=== PATIENT | female | born 1970 | race African-American/Black ===

== ENCOUNTER 2017-02-18 17:56 | Inpatient (IN) | payer OTHER ==
--- NOTE | ~2017-02-18 | EKG ---
PATIENT: DIANA HUANG UNIT #: [id number] Ventricular Rate: 110 BPM Atrial Rate: 110 BPM P-R Interval: 160 ms QRS Duration: 88 ms Q-T Interval: 370 ms QTC Calculation(Bezet): 500 ms P [place]: 79 degrees Calculated R [place]: 54 degrees Calculated T [place]: 91 degrees Diagnosis Line: Sinus tachycardia Diagnosis Line: Possible Left atrial enlargement Diagnosis Line: Left ventricular hypertrophy Diagnosis Line: Nonspecific ST and T wave abnormality Diagnosis Line: Abnormal ECG Diagnosis Line: When compared with ECG of 21-DEC-2014 00:37, Diagnosis Line: No significant change was found Diagnosis Line: Confirmed by ANGEL SINGER MD ([id number]) on Diagnosis Line: 02/21/2017 8:33:45 AM INTERPRETING MD: ENMANUEL WATKINS
--- NOTE | ~2017-02-18 | US5 ---
[facility] A Service of [facility] & [facility] RADIOLOGY TEXT RESULTS PATIENT: DIANA HUANG LOCATION: [facility] [id number] : [birth year] UNIT #: [id number] AGE: [address]: Ton Lambert MD SEX: F ORDER DR: [id number] [facility] [address] [place], [place] [address] [id number] I MR#: [id number] Acc #: [id number] NAME: DIANA HUANG : 1970 SEX: F STUDY DATE/TIME: 02/19/2017 14:49 UNIT: [facility] ROOM: [facility] STUDY DESCRIPTION: US Abdominal Complete Attending Physician: Ton Lambert M.D. Ordering Physician: David Patricia M.D. Primary Care Physician: [facility] MEDICAL IMAGING REPORT This report is preliminary unless electronic signature is present EXAM Abdominal ultrasound HISTORY Abdomen pain and swelling for 4 months. Nausea. FINDINGS Ultrasound examination of the abdomen demonstrates no hepatic mass or biliary ductal dilatation. Splenomegaly measuring 18 cm in length. No renal mass or hydronephrosis. Normal caliber abdominal aorta. Cholecystectomy. The mid pancreas is only partly visualized and unremarkable but the remainder of the pancreas was not visualized due to overlying bowel gas artifact. The upper abdominal IVC is partly visualized and is unremarkable. No ascites. IMPRESSION 1. Splenomegaly measuring 18 cm in length. 2. Cholecystectomy. No biliary dilatation. 3. The remainder of the abdominal ultrasound is unremarkable. Dictated by... Da Doss M.D. THIS IS AN ELECTRONICALLY VERIFIED REPORT Da Doss M.D. at 02/20/2017 2:35 PM DFL/michele TD: 02/20/2017 05:03 JOB #: [id number] MEDICAL IMAGING REPORT Page 1 of 1 COPY
--- NOTE | ~2017-02-18 | CO ---
Unit #: [id number] #: [id number] Patient: DIANA HUANG [id number] [address] [id number] I MR#: [id number] NAME: DIANA HUANG ROOM: 57366 Age: 46 Sex: F Admission Date: 02/18/2017 : 1970 Attending Physician: Ton Lambert M.D. Primary Care Physician: [facility] CONSULTATION REPORT REASON FOR CONSULTATION Critical care management. CHIEF COMPLAINT Swelling of the legs and abdominal pain. HISTORY OF PRESENT ILLNESS This patient basically is a 46-year-old female with a past medical history of hypertension, lower extremity edema, presented with a complaint of abdominal pain and lower extremity swelling and was found to have a blood pressure of 220/124 with shortness of breath. I am seeing her at the bedside, currently on Cardene drip. Blood pressure is controlled. Denies any headache, blurry vision. No chest pain, mild shortness of breath. PAST MEDICAL HISTORY 1. Hypertension. 2. Lower extremity edema. 3. Obesity. 4. Likely obstructive sleep apnea. SURGICAL HISTORY Cholecystectomy. SOCIAL HISTORY Denies smoking. No alcohol, no drug abuse. FAMILY HISTORY Hypertension. MEDICATION Does not take any medication. ALLERGIES No known drug allergies. PHYSICAL EXAMINATION VITAL SIGNS: Temperature 98, pulse 87, respirations 12, blood pressure 130/70. NEUROLOGICAL: She is awake, alert, oriented. No neuro deficit. HEENT: PERRLA. NECK: Supple. No JVD. CHEST: Bilateral air entry, bilateral mild rhonchi. Unit #: [id number] #: [id number] Patient: DIANA HUANG GI: Nontender, soft. Bowel sounds positive. EXTREMITIES: Positive edema. SKIN: No rashes, no ulcers. LYMPHATIC: No lymphadenopathy. DIAGNOSTIC STUDIES LABORATORY: Potassium is 3.2. Her BNP is 554, white count 5, hemoglobin 8, hematocrit 31, platelet count is 92. ASSESSMENT AND PLAN 1. Hypertensive urgency. 2. Pulmonary edema, likely hypertensive heart disease. 3. Obstructive sleep apnea. 4. Thrombocytopenia. 5. Noncompliance. 6. Questionable urinary tract infection. Plan is to admit the patient, diuretics, IV Cardene drip. Cardiology consult, 2D echo. GI and DVT prophylaxis. The patient will be closely monitored. Please see orders for detailed plan. Total critical care time - 65 minutes in direct critical care of this patient. Thank you very much for this consultation. Dictated by... Lien Rock/jesus alberto TD: 02/19/2017 10:07 JOB #: [id number] CONSULTATION REPORT Page 1 of 1 X Deb Otero MD X CONSULTATION REPORT
--- NOTE | ~2017-02-18 | EKG ---
PATIENT: DIANA HUANG UNIT #: [id number] Ventricular Rate: 75 BPM Atrial Rate: 75 BPM P-R Interval: 184 ms QRS Duration: 96 ms Q-T Interval: 472 ms QTC Calculation(Bezet): 527 ms P [place]: 61 degrees Calculated R [place]: -4 degrees Calculated T [place]: 97 degrees Diagnosis Line: Normal sinus rhythm Diagnosis Line: Possible Left atrial enlargement Diagnosis Line: Left ventricular hypertrophy Diagnosis Line: Nonspecific T wave abnormality Diagnosis Line: Prolonged QT Diagnosis Line: Abnormal ECG Diagnosis Line: When compared with ECG of 18-FEB-2017 20:07, Diagnosis Line: (unconfirmed) Diagnosis Line: Questionable change in QRS axis Diagnosis Line: ST no longer depressed in Lateral leads Diagnosis Line: Confirmed by CELESTINE KEYES MD ([id number]) on Diagnosis Line: 02/21/2017 11:00:54 PM INTERPRETING MD: BURKE
--- NOTE | ~2017-02-18 | CR72 ---
[facility] A Service of [facility] & [facility] RADIOLOGY TEXT RESULTS PATIENT: DIANA HUANG LOCATION: [facility] [id number] : [birth year] UNIT #: [id number] AGE: [address]: Ton Lambert MD SEX: F ORDER DR: [id number] [facility] [address] [place], [place] [address] [id number] I MR#: [id number] Acc #: [id number] NAME: DIANA HUANG : 1970 SEX: F STUDY DATE/TIME: 02/18/2017 20:18 UNIT: [facility] ROOM: 81295 STUDY DESCRIPTION: CR Chest Single View Portable Attending Physician: Julian Moreno M.D. Ordering Physician: David Patricia M.D. Primary Care Physician: [facility] MEDICAL IMAGING REPORT This report is preliminary unless electronic signature is present EXAM Portable chest HISTORY Chronic shortness of air for 2 months. Cough. FINDINGS Cardiomegaly has increased since 12/21/2014 and could be due to multichamber cardiac enlargement or pericardial effusion. Moderate vascular congestion has also developed or increased since the prior study. Limited evaluation of the lung bases due to underpenetration. IMPRESSION Cardiomegaly and vascular congestion. No definite focal infiltrates. Dictated by... Da Doss M.D. THIS IS AN ELECTRONICALLY VERIFIED REPORT Da Doss M.D. at 02/19/2017 2:59 PM DFL/rnr TD: 02/19/2017 01:42 JOB #: [id number] MEDICAL IMAGING REPORT Page 1 of 1 COPY
--- NOTE | ~2017-02-18 | DS ---
Unit #: [id number] #: [id number] Patient: DIANA HUANG [id number] [place], [place] [address] [id number] I MR#: [id number] NAME: DIANA HUANG ROOM: 332 Age: 46 Sex: F Admission Date: 02/18/2017 : 1970 Discharge Date: 02/21/2017 Attending Physician: Ton Lambert M.D. Primary Care Physician: [facility] DISCHARGE SUMMARY DISCHARGE DIAGNOSES 1. Acute diastolic heart failure, newly diagnosed. 2. Severe mitral regurg which was present on echo. 3. Acute hypoxic respiratory failure, resolved. The patient is oxygenating well on room air at this time. 4. Hypertensive urgency. 5. Noncompliance. 6. Severe iron deficiency anemia. 7. Splenomegaly. 8. Morbidly obese. PROCEDURES None. CONSULTANTS 1. Cardiology with [facility]. 2. Pulmonary with Dr. Otero. DIAGNOSTIC STUDIES LABORATORY: Last labs done 02/20/17. BMP: Glucose 78, BUN 11, creatinine 0.9, sodium 141, potassium 4.8, chloride 103, CO2 27, magnesium 1.8, AST 17, ALT 12, alkaline phosphatase 94. Amylase 14, lipase 18. CBC with WBC of 5.7, RBC 5.17, hemoglobin 8.4, hematocrit 31.0, MCV 60.9, MCH 16.2, MCHC 27.0, RDW 21.8, platelets 92, MPV 8.7. Urine culture had no growth. Please note that the patient's B12 was 571. Iron 121, total iron binding capacity 499, transferrin 357, saturation 24. Acute hepatis panel is still pending. IMAGIN. Chest x-ray on 02/18/17. Impression: Cardiomegaly and vascular congestion. No definite focal infiltrates. 2. Abdominal ultrasound on 02/19/17. Impression: Splenomegaly measuring 18 cm in length. Cholecystectomy. No biliary dilation. The remainder of the abdominal ultrasound is unremarkable. CARDIOVASCULAR: The patient had a 2D echo done on 02/19/17. Summary: Moderate concentric left ventricular hypertrophy. Ejection fraction is visually estimated at 60%. Mild asymmetrical septal hypertrophy. Mildly dilated right ventricle. Right ventricular systolic pressure of 41 mmHg consistent with mild pulmonary structurally normal mitral valve. There is severe mitral regurgitation present, mild to moderate tricuspid regurg. There is mild pulmonic regurg. HOSPITAL COURSE Unit #: [id number] #: [id number] Patient: DIANA HUANG The patient is a 46-year-old female with past medical history of essential hypertension, lower extremity edema and obesity who she herself states she does not take anything medically chronically. The patient presented to the emergency department due to symptoms of shortness of breath, swelling in the abdomen and lower extremity. Symptoms have been ongoing for two months and have progressively gotten worse. She was unable to ambulate due to her abdominal swelling and lower extremity swelling. In the emergency department, she had a workup which includes a BNP of 941, a chest x-ray that showed congestion and blood pressure of 220/124. She was started on nitro drip and admitted for new onset CHF. She was seen in consultation with Dr. Otero of Pulmonary for critical care. She was also seen in consultation with [facility] Cardiology for newly diagnosed heart failure. She was treated with IV Lasix as diuretic and her blood pressure had been adjusted by Cardiology. At this time, she has diuresed well. Blood pressure is controlled with the adjustment of blood pressure medicine per Cardiology. It is felt by Cardiology that patient is stable and may be discharged home. The patient will follow up with Dr. Osorio on April 22, 2017 at 2:30 p.m. She will have further planning for ischemic assessment with Dr. Osorio at that time. DISCHARGE CONDITION Stable to home. DISCHARGE FOLLOWUP To follow up with Dr. Osorio April 22. Follow up with primary care physician within one to two weeks. DISCHARGE ACTIVITY Not restricted. DISCHARGE DIET This patient is to resume a Heart Healthy diet with 1800 mL fluid restriction, 2 g sodium diet. (1) . No sodas. DISCHARGE MEDICATIONS 1. Lopressor 50 mg orally every 12 hours. 2. Lasix 40 mg orally twice daily. 3. Lisinopril 20 mg orally twice daily. 4. Spironolactone 25 mg orally daily. 5. Potassium chloride 20 mEq orally daily. 6. Ferrous gluconate 324 mg orally twice daily. 7. Stool softener one orally daily. Dictated by... Jaky Garcia PA-C for Lien Bustamante TD: 02/22/2017 08:46 JOB #: [id number] Unit #: [id number] #: [id number] Patient: DIANA HUANG DISCHARGE SUMMARY Page 1 of 1 X X DISCHARGE SUMMARY
--- NOTE | ~2017-02-18 | CO ---
Unit #: [id number] #: [id number] Patient: DIANA SANDRA [id number] [address] [place], [place] [address] [id number] I MR#: [id number] NAME: DIANA SANDRA ROOM: 332 Age: 46 Sex: F Admission Date: 02/18/2017 : 1970 Attending Physician: Ton Lambert M.D. Primary Care Physician: [facility] Consultation Date: 02/19/2017 CONSULTATION REPORT REASON FOR CONSULTATION Acute congestive heart failure and hypertensive urgency. HISTORY OF PRESENT ILLNESS This is a 46-year-old female, who has had known hypertension in the past, been noncompliant for several years with her blood pressure medication and back in 2007, had some pulmonary edema, most likely from hypertension. She had an echo at that time that her EF is greater than 55%. She has a history of chronic anemia, probable obstructive sleep apnea. She is obese with a weight of 254, BMI of 53. The patient presented to the emergency room with worsening shortness of breath, increased abdominal swelling, and increased lower extremity edema and swelling. She denies any chest pain; pain in her neck, bilateral jaws, shoulders, arms, or elbow. She denies any palpitations. No dizziness, presyncope, or syncope. The patient's initial blood pressure was found to be 220/124, heart rate was 107, respirations 18, she is afebrile, O2 saturation was 99% on room air. Her chest x-ray showed vascular congestion. Her BNP was 941 and later 554. The patient initially was given some IV Lasix and started on a nitroglycerin drip, which was later changed to a Cardene drip. The patient received some 4 mg of IV morphine and nitroglycerin paste and 40 of IV Lasix. Cardiology has been consulted to assist with evaluation and management. The patient's EKG showed no sinus tachycardia with left atrial enlargement, left ventricular hypertrophy, nonspecific changes. PAST MEDICAL HISTORY 1. Hypertension, noncompliance with medication for several years. 2. History of pulmonary edema back in 2007 and it was likely from hypertension. 3. Renal insufficiency. 4. In 2007, had a 2D echo. LVEF was greater than 55%. Mild apical hypokinesis. 5. History of anemia. 6. Probable obstructive sleep apnea. 7. Obesity. Weight 254 pounds, BMI 53. 8. Nonsmoker. PAST SURGICAL HISTORY Cholecystectomy. HOME MEDICATIONS None. Unit #: [id number] #: [id number] Patient: DIANA SANDRA ALLERGIES No known drug allergies. SOCIAL HISTORY The patient lives with her family. She has had nine children. No tobacco, alcohol, or illicit drug abuse. FAMILY HISTORY Hypertension runs in most of her immediate family members. REVIEW OF SYSTEMS See details in HPI. PHYSICAL EXAMINATION GENERAL: Ms. Sandra is a 46-year-old female. She is in no acute respiratory distress. VITAL SIGNS: Currently on Cardene. Her blood pressure is 162/99, heart rate 76, respirations 18, temperature is 98.0, O2 saturations 97% on 2 L. NECK: Trachea midline. No thyromegaly or lymphadenopathy. Normal carotid upstrokes. Mild jugular venous distention. HEART: S1, S2. Grade 2/4 systolic murmur all over the left sternal border. LUNGS: Diminished. Hard to auscultate due to body habitus, but some faint rales. ABDOMEN: Obese. Positive bowel sounds present. Very firm on the lower abdominal region. EXTREMITIES: Pedal pulses are faint, but palpable. 3 to 4+ pedal edema. DIAGNOSTIC STUDIES LABORATORY RESULTS: Glucose is 107, BUN 11, creatinine 0.9, eGFR is 87.7, sodium 140, potassium 3.1, chloride 101, calcium is 8.1, magnesium is 1.6, total protein 8.2, albumin 3.2, bilirubin total 1.9, AST 17, ALT 12, alkaline phosphatase is 94. Amylase is 14, lipase is 18. BNP on admission was 941, today is 554. WBCs are 6.7, hemoglobin 9.1, hematocrit 33.2, and platelets 401. Urinalysis shows trace of leukocyte esterase, 3+ protein, 2.0 urobilinogen, 2+ blood, 10 to 25 wbc's. Urine cultures pending. Initial cardiac enzymes; CK-MB is less than 1.0, troponin is less than 0.05. Latest cardiac enzymes; CK total is 42, troponin less than 0.03. IMAGING STUDIES: Chest x-ray shows cardiomegaly and vascular congestion. No infiltrates. Ultrasound of abdomen shows splenomegaly, measuring 18 cm in length with cholecystectomy. No biliary dilatation. CARDIOVASCULAR STUDIES: EKG shows sinus tachycardia with ventricular rate 110 beats per minute, left atrial enlargement, left ventricular hypertrophy, nonspecific ST-T wave abnormalities in the inferolateral leads. IMPRESSION 1. Hypertensive urgency. 2. Acute congestive heart failure. 3. Anemia, which is chronic. 4. Renal insufficiency. 5. Probable obstructive sleep apnea. 6. Morbid obesity. Unit #: [id number] #: [id number] Patient: DIANA SANDRA 7. Noncompliance. PLAN 1. The patient is on a Cardene drip. Her blood pressure is responding somewhat to the medications. 2. The patient will be on metoprolol 50 mg p.o. b.i.d. with parameters, also add lisinopril 40 mg p.o. stat and 20 mg daily at h.s. I add Aldactone 25 mg p.o. daily. 3. We will titrate off Cardene drip when systolic blood pressures less than 160 mmHg. 4. Strict intake and output and daily weight, 2000 mL/24-hour fluid restriction. 5. Obtain a fasting lipid profile and TSH, and evaluate. 6. The patient's potassium was low that will be supplemented with some magnesium and potassium protocol. 7. Obtain a 2D echo to evaluate her LV function and valves. 8. Besides the beta-leonor and DEYSI inhibitor, we will add Aldactone with fluid restriction. 9. Continue on IV Lasix 40 mg p.o. b.i.d. 10. The patient will need ischemic heart disease workup when the patient's congestive heart failure stable. 11. The patient is getting an infusion of IV Venofer for her chronic anemia. 12. Hemoccult stools. Looking back on her previous admission back in 2008, she was anemic and it was mostly secondary to some type of the menstrual bleeding. The patient still says she does have periods, but her blood flow is not as bad as it used to be and she has had a tubal ligation. 13. On exam, there are no signs or symptoms of unstable angina. Cardiac enzymes were negative. Continue to monitor EKG. As mentioned, we will discuss with the patient an ischemic heart disease workup during this admission. 14. Further recommendations pending per Dr. Osorio. 15. We will encourage the patient's compliance for blood pressure medication. We will have the school childcare attendant to assist with any needs. Dictated by... Trina Henson A.P.R.N. for Lien Mittal/charisse TD: 02/20/2017 13:52 JOB #: [id number] CONSULTATION REPORT Page 1 of 1 X Trina Henson APRN X CONSULTATION REPORT
--- NOTE | ~2017-02-18 | HP ---
Unit #: [id number] #: [id number] Patient: DIANA HUANG [id number] [address] [address] [id number] I MR#: [id number] NAME: DIANA HUANG ROOM: 35955 Age: 46 Sex: F Admission Date: 02/18/2017 : 1970 Attending Physician: Ton Lambert M.D. Primary Care Physician: [facility] HISTORY AND PHYSICAL CHIEF COMPLAINT Shortness of breath, swelling in the abdomen, and lower extremity edema. This is a 46-year-old female who has a history of hypertension, lower extremity edema, not been seeing any primary doctor for more than one year. She presented to emergency room with chief complaint of having increasing lower extremity edema and abdominal swelling and shortness of breath, dyspnea on exertion. These symptoms started two months ago and progressively got worse. They stated that she was unable to ambulate. She was safe today and she came to the ER. On workup, she was found to have BNP 941. She had a chest x-ray which showed congestion. On arrival to ER, she was found to be hypertensive. Blood pressure 220/124. She has been started on nitro drip and eventually admitted for new onset CHF. She denies chest pain, she denies nausea, vomiting, fever. PAST MEDICAL HISTORY 1. History of hypertension. 2. History of lower extremity edema. 3. Obesity. PAST SURGICAL HISTORY History of cholecystectomy. SOCIAL HISTORY She denies smoking. She denies alcohol. She denies illicit drug use. FAMILY HISTORY Hypertension runs in the family. HOME MEDICATIONS She does not take any medication at home. ALLERGIES No known drug allergies. REVIEW OF SYSTEMS CONSTITUTIONAL: No fever, no chills. She has positive recent weight gain. CARDIOVASCULAR: No chest pain. She reports nocturnal dyspnea. She denies orthopnea. PULMONARY: She reports shortness of breath, dyspnea on exertion. No cough, no wheezing. GI: No nausea, no vomiting, no diarrhea, no constipation. GENITOURINARY: She denies any dysuria or urgency. Unit #: [id number] #: [id number] Patient: DIANA HUANG NEURO: No headache, no loss of consciousness, no dizziness. SKIN: No rash. ENDOCRINE: No polyuria, no polydipsia. PHYSICAL EXAMINATION GENERAL: Middle aged female lying in the bed comfortably, currently not in any distress. She is alert, awake, oriented x3. CURRENT VITAL SIGNS: Temperature 97.9, heart rate 107, respiratory rate 18, blood pressure 220/124. HEENT: Pupils equal, reactive to light and accommodation. Head is normocephalic, atraumatic. NECK: Supple. No JVD. HEART: S1, S2. Regular rate and rhythm. LUNGS: Poor air entry bilaterally. ABDOMEN: Obese, distended. Positive bowel sounds. EXTREMITIES: Positive edema 3+, chronic lymphedema changes. NEURO: No focal neurologic deficit. SKIN: No rash. DIAGNOSTIC STUDIES LABORATORY: Sodium 140, potassium 3.6, chloride 160, glucose 93, BUN 13, creatinine 0.9, AST 18, ALT 12, alkaline phos. 104, bilirubin total 1.2, bilirubin direct 1.3, lipase 18, amylase 14. test negative. BNP 941. UA - clear but trace LE, positive WBC 10-20. White count 6, hemoglobin 9, hematocrit 32, platelets 101. Troponin negative. IMAGING: Chest x-ray shows cardiomegaly with vascular congestion. ASSESSMENT AND PLAN 1. New onset congestive heart failure: Will start on IV diuretics. Will get 2D echo. Cardiology consult. 2. Increasing lower extremity edema with chronic lymphedema. 3. Uncontrolled hypertension, hypertensive urgency. Continue nitro drip. 4. Questionable urinary tract infection: Start on IV Rocephin. 5. Thrombocytopenia. 6. Obesity. 7. Noncompliance. 8. DVT prophylaxis: Will place the patient on Lovenox. Dictated by Lien Tolbert TD: 02/19/2017 08:28 JOB #: [id number] Unit #: [id number] #: [id number] Patient: DIANA HUANG HISTORY AND PHYSICAL Page 1 of 1 X X HISTORY AND PHYSICAL
[~2017-02-18 17:56] MED LIST: BLEPH-105 M1 OP; DICLOFENAC SOD100 MG PO; FLEXERIL10 MG PO; LASIX PO; LOPRESSOR PO; LORTAB 10-5001 EACH PO; PEN-VEE K PO; PROCARDIA XL PO; VOLTAREN 0.1%2.5 ML OD
[2017-02-18 20:58] LABS: POC - CKMB <1.0 ng/mL (0.0-7.9); POC - TROPONIN <0.05 ng/mL (<=0.05)
[2017-02-18 20:58] LABS: BASOPHIL# 0.1 X10e3 (0-0.3); BASOPHIL% 0.8 % (0-2.5); EOSINOPHIL# 0.1 X10e3 (0-0.7); HEMATOCRIT 33.2 % (35.0-45.0); HEMOGLOBIN 9.1 gm/dL (12.0-16.0); LYMPHOCYTE# 1.4 X10e3 (1.0-3.5); LYMPHOCYTE% 20.6 % (17.0-45.0); MEAN CELL VOLUME 59.4 FL (83-96); MEAN CORPUSCULAR HEMOGLOBIN 16.3 PG (28-34); MEAN CORPUSCULAR HGB CONC 27.5 g/dL (30-36); MEAN PLATELET VOLUME 8.3 FL (6.5-11.5); MONOCYTE# 0.8 X10e3 (0-1.0); MONOCYTE% 12.4 % (3.0-12.0); NEUTROPHIL# 4.4 X10e3 (1.5-7.1); NEUTROPHIL% 65.2 % (40-75); PLATELET COUNT 101 X10e3 (140-420); RED BLOOD COUNT 5.59 X10e (3.90-5.30); RED CELL DISTRIBUTION WIDTH 21.8 % (11.0-15.5); WHITE BLOOD COUNT 6.7 X10e3 (4.0-10.5)
[2017-02-18 20:59] LABS: DIFF IND YES
[2017-02-18 21:06] LABS: URINE SOURCE CLEAN CATCH
[2017-02-18 21:12] LABS: URINE APPEARANCE CLEAR; URINE BILIRUBIN NEG (NEG); URINE BLOOD 2+ (NEG); URINE COLOR YELLOW; URINE GLUCOSE NEG (NEG); URINE KETONE NEG (NEG); URINE LEUKOCYTE ESTERASE TRACE (NEG); URINE NITRATE NEG (NEG); URINE PROTEIN 3+ (NEG); URINE SPECIFIC GRAVITY 1.016 (1.003-1.035)
[2017-02-18 21:16] LABS: ANISOCYTOSIS SL; HYPOCHROMIA SL; PLATELET ESTIMATE DECREASED (NORMAL)
[2017-02-18 21:16] LABS: CULTURE INDICATED? YES; URINE BACTERIA AUWI NEG (NEGATIVE); URINE SQUAMOUS EPITHELIAL CELL OCC /[HPF]
[2017-02-18 21:17] LABS: MICROCYTOSIS SL
[2017-02-18] MEDS ORDERED: NO MEDICATIONS (22:00)
[2017-02-18 22:19] LABS: ALBUMIN SERUM 3.3 g/dL (3.5-5.0); BILIRUBIN, DIRECT 0.3 mg/dL (0.0-0.2); BILIRUBIN,INDIRECT 1.2 mg/dL (0.0-0.9); BILIRUBIN,TOTAL 1.5 mg/dL (0.2-2.0); BUN/CREATININE RATIO 14.44; CALCIUM SERUM 8.4 mg/dL (8.4-10.2); CREATININE SERUM 0.9 mg/dL (0.6-1.4); GLOM FILT RATE Estimated 87.7 mL/min (>60); POTASSIUM 3.6 mmol/L (3.5-5.1); PROTEIN TOTAL SERUM 8.4 g/dL (6.0-8.3)
[2017-02-19 07:19] LABS: BASOPHIL% 0.8 % (0-2.5); EOSINOPHIL# 0.1 X10e3 (0-0.7); EOSINOPHIL% 1.2 % (0.0-7.0); HEMOGLOBIN 8.4 gm/dL (12.0-16.0); LYMPHOCYTE# 0.7 X10e3 (1.0-3.5); LYMPHOCYTE% 11.8 % (17.0-45.0); MEAN CORPUSCULAR HEMOGLOBIN 16.2 PG (28-34); MEAN PLATELET VOLUME 8.7 FL (6.5-11.5); MONOCYTE# 0.7 X10e3 (0-1.0); MONOCYTE% 11.7 % (3.0-12.0); NEUTROPHIL# 4.2 X10e3 (1.5-7.1); NEUTROPHIL% 74.5 % (40-75); PLATELET COUNT 92 X10e3 (140-420); RED BLOOD COUNT 5.17 X10e (3.90-5.30); RED CELL DISTRIBUTION WIDTH 21.8 % (11.0-15.5); WHITE BLOOD COUNT 5.7 X10e3 (4.0-10.5)
[2017-02-19 07:20] LABS: DIFF IND YES
[2017-02-19 08:01] LABS: ANISOCYTOSIS MOD; HYPOCHROMIA MOD; PLATELET ESTIMATE DECREASED (NORMAL)
[2017-02-19 08:02] LABS: ELLIPTOCYTES PRESENT
[2017-02-19 08:08] LABS: ALBUMIN SERUM 3.2 g/dL (3.5-5.0); BILIRUBIN,TOTAL 1.9 mg/dL (0.2-2.0); BUN/CREATININE RATIO 12.22; CALCIUM SERUM 8.1 mg/dL (8.4-10.2); CREATININE SERUM 0.9 mg/dL (0.6-1.4); GLOM FILT RATE Estimated 87.7 mL/min (>60); POTASSIUM 3.2 mmol/L (3.5-5.1); PROTEIN TOTAL SERUM 8.2 g/dL (6.0-8.3)
[2017-02-19 13:12] LABS: CK TOTAL 38 IU/L (26-140)
[2017-02-19 19:10] LABS: CK TOTAL 42 IU/L (26-140)
[2017-02-19 20:14] LABS: BUN/CREATININE RATIO 12.22; CALCIUM SERUM 8.1 mg/dL (8.4-10.2); CREATININE SERUM 0.9 mg/dL (0.6-1.4); GLOM FILT RATE Estimated 87.7 mL/min (>60); MAGNESIUM 1.6 mg/dL (1.6-3.0); POTASSIUM 3.1 mmol/L (3.5-5.1)
[2017-02-20 09:01] LABS: FERRITIN 26 ng/mL (11-307)
[2017-02-20 09:03] LABS: BUN/CREATININE RATIO 12.22; CALCIUM SERUM 8.2 mg/dL (8.4-10.2); CREATININE SERUM 0.9 mg/dL (0.6-1.4); GLOM FILT RATE Estimated 87.7 mL/min (>60); MAGNESIUM 1.8 mg/dL (1.6-3.0); POTASSIUM 4.8 mmol/L (3.5-5.1)
[2017-02-21] MEDS ORDERED: LOPRESSOR PO (16:46)
[2017-02-21] MEDS ORDERED: FUROSEMIDE40 MG PO (16:47)
[2017-02-21] MEDS ORDERED: LISINOPRIL20 MG PO (16:47)
[2017-02-21] MEDS ORDERED: ALDACTONE25 MG PO (16:48)
[2017-02-21] MEDS ORDERED: KCL PO ×2 (16:49→17:27)
[2017-02-21] MEDS ORDERED: FERROUS GLUCON324 M2 PO (16:49)
[2017-02-21] MEDS ORDERED: ALBUTEROL INH (16:52)
[2017-02-21] MEDS ORDERED: STOOL SOFTENER1 EAC1 PO (17:29)
[2017-02-23 15:25] LABS: HA AB IGM (HEPPAN) Nonreactive (()); HB CORE AB IGM (HEPPAN) Nonreactive (Nonreactive); HB S AG (HEPPAN) Nonreactive (Nonreactive); HEP C AB (HEPPAN) Nonreactive (Nonreactive); HEP C AB SIGNAL TO CUTOFF 0.34 ratio (<1.00)
== END 2017-02-21 17:53 | disposition home health service (06) | DRG 291 ==
LOC: CED 17:56 → CEDOF 23:00 → C3A PCU 23:00 → CEDOF 23:16 → CED 23:16 → CEDOF 02-19 07:33 → C3A PCU 02-19 18:52
PROVIDERS: Emergency Medicine; Family Medicine
PROC: B24BZZZ Ultrasonography of Heart with Aorta (ICD-10-PCS; principal; 2017-02-19)
DX: I11.0 Hypertensive heart disease with heart failure (principal); J96.01 Acute respiratory failure with hypoxia; Z68.43 Body mass index [BMI] 50.0-59.9, adult; I08.1 Rheumatic disorders of both mitral and tricuspid valves; E66.01 Morbid (severe) obesity due to excess calories; D69.6 Thrombocytopenia, unspecified; N39.0 Urinary tract infection, site not specified; I50.31 Acute diastolic (congestive) heart failure; I16.0 Hypertensive urgency; Z91.14 Patient's other noncompliance with medication regimen; D50.9 Iron deficiency anemia, unspecified; R16.1 Splenomegaly, not elsewhere classified; I89.0 Lymphedema, not elsewhere classified; G47.33 Obstructive sleep apnea (adult) (pediatric); N28.9 Disorder of kidney and ureter, unspecified; Z90.49 Acquired absence of other specified parts of digestive tract; Z82.49 Family history of ischemic heart disease and other diseases of the circulatory system
CPT/HCPCS: 71010; 76700; 80048; 80053; 80061; 80074; 80076; 81003; 82150; 82550; 82553; 82607; 82728; 82947; 83036; 83540; 83550; 83690; 83735; 83880; 84439; 84443; 84484; 84703; 85025; 87086; 93005; 93306; 94640; 94760; 96374; 96375; 99285; C9113; J0360; J0696; J1650; J1940; J2270; J2916; J3475

== ENCOUNTER → 2017-04-22 | Outpatient (CLI) | payer OTHER ==
[~2017-04-22] MED LIST changes: +ALBUTEROL INH; +ALDACTONE25 MG PO; +FERROUS GLUCON324 M2 PO; +FUROSEMIDE40 MG PO; +KCL PO; +LISINOPRIL20 MG PO; +NO MEDICATIONS; +STOOL SOFTENER1 EAC1 PO
[2017-04-22 16:03] LABS: BUN/CREATININE RATIO 17.27; CALCIUM SERUM 8.5 mg/dL (8.4-10.2); CREATININE SERUM 1.1 mg/dL (0.6-1.4); GLOM FILT RATE Estimated 68.8 mL/min (>60); POTASSIUM 3.6 mmol/L (3.5-5.1)
== END | disposition home or self-care (01) ==
LOC: CLAB 15:17
PROVIDERS: Internal Medicine Cardiovascular Disease
DX: I50.9 Heart failure, unspecified (principal)
CPT/HCPCS: 80048; 83880